=== PATIENT | female | born 1980 | race Caucasian/White ===

== ENCOUNTER 2016-12-30 06:11 | Inpatient (IN) | payer BC ==
[~2016-12-30 06:11] MED LIST: Buffered Lidocaine 0.9% SYRIN* 5 ML/SYR SYRINGE INTRADERM ONE; Sodium Citrate/Citric Acid* 15 ML UDC PO ONE
[2016-12-30] MEDS ORDERED: ceFAZolin 2 GM PREMIX(*) 2 GM/50 ML BAG IVPB ONE (07:19)
[2016-12-30] MEDS ORDERED: Ondansetron INJ* 2 MG/ML VIAL ONE (08:32)
[2016-12-30] MEDS ORDERED: Dexamethasone IV* 4 MG/ML 1 ML (4 MG) ONE (08:32)
[2016-12-30] MEDS ORDERED: OXYTOCIN* 10 UNITS/ML 1 ML VIAL ONE (08:32)
[2016-12-30] MEDS ORDERED: Morphine PF AMP (0.5MG/ML)* 5 MG/10 ML AMP ONE (08:32)
[2016-12-30] MEDS ORDERED: Acetaminophen IV 1GM/100ML * 100 ML IVPB ONE (08:55)
[2016-12-30] MEDS ORDERED: fentaNYL* 50 MCG/ML 2 ML VIAL (100 MCG VIAL) IV PRN (08:55)
[2016-12-30] MEDS ORDERED: oxyCODONE TAB* 5 MG TAB PO PRN ×2 (08:55→09:32)
[2016-12-30] MEDS ORDERED: PROCHLORPERAZINE INJ 5 MG/ML 2 ML VIAL IV PRN (08:55)
[2016-12-30] MEDS ORDERED: Scopolamine 1.5 mg* PATCH TRANSDERM PRN ×2 (08:55→09:32)
[2016-12-30] MEDS ORDERED: Nalbuphine* 20 MG/ML 1 ML VIAL IV PRN ×2 (08:55→09:32)
[2016-12-30] MEDS ORDERED: Ketorolac INJ* 30 MG/ML 1 ML VIAL IV ONE (09:00)
[2016-12-30] MEDS ORDERED: Ondansetron INJ* 2 MG/ML VIAL IV PRN (09:32)
[2016-12-30] MEDS ORDERED: Scopolomine PATCH Remove* 1 NOTE MISC PATCH OFF PRN (09:32)
[2016-12-30] MEDS ORDERED: Naloxone* 0.4 MG/ML 1 ML VIAL IV PRN (09:32)
[2016-12-30] MEDS ORDERED: Witch Hazel PAD* JAR TOPICAL PRN (14:15)
[2016-12-30] MEDS ORDERED: Acetaminophen TAB* 325 MG PO PRN (14:15)
[2016-12-30] MEDS ORDERED: Glycerin ADULT SUPP PR PRN (14:15)
[2016-12-30] MEDS ORDERED: Dibucaine 1% 28.35 GM TUBE PR PRN (14:15)
[2016-12-30] MEDS: Ketorolac INJ* 30 MG/ML 1 ML VIAL IV SCH ×2 (17:09→21:32)
[2016-12-30] MEDS: Simethicone CHEW TAB* 80 MG PO SCH ×2 (17:10→21:33)
[2016-12-30] MEDS ORDERED: Acetaminophen TAB* 325 MG PO SCH (18:00)
[2016-12-30] MEDS: Docusate CAP* 100 MG PO SCH (21:33)
[2016-12-31] MEDS ORDERED: oxyCODONE/Acetamin 5/325 MG* TAB PO PRN ×2 (01:01)
--- NOTE | 2016-12-31 03:18 | PTEDU ---
Patient Name: ARLINE FLORES ARLINE FLORES selected video: Follow Me Mum: The [facility] to Successful to view on 7 at 3:17:40 AM from [id number]
[2016-12-31] MEDS: Ketorolac INJ* 30 MG/ML 1 ML VIAL IV SCH (03:53)
[2016-12-31] MEDS ORDERED: Ibuprofen TAB* 600 MG PO PRN (04:02)
[2016-12-31 06:48] LABS: Hematocrit 30 % (35-47); Mean Corpuscular HGB Conc 33 g/dl (31-36); Mean Corpuscular Hemoglobin 31 pg (27-31); Mean Corpuscular Volume 94 fL (80-97); Mean Platelet Volume 10 um3 (7.4-10.4); Red Blood Count 3.24 10^6/ul (4.0-5.4); Red Cell Distribution Width 15 % (10.5-15); White Blood Count 14.7 10^3/ul (3.5-10.8)
[2016-12-31] MEDS: Simethicone CHEW TAB* 80 MG PO SCH ×4 (08:49→20:26)
[2016-12-31] MEDS: Metoprolol Tartrate TAB* 50 mg PO SCH (08:49)
[2016-12-31] MEDS: Docusate CAP* 100 MG PO SCH ×3 (08:50→20:26)
[2016-12-31] MEDS: Ferrous Gluconate TAB* 324 MG TAB PO SCH (08:50)
[2016-12-31] MEDS ORDERED: Zolpidem TAB* 5 MG PO PRN (21:00)
[2017-01-01] MEDS: Ferrous Gluconate TAB* 324 MG TAB PO SCH ×3 (00:45→21:00)
[2017-01-01] MEDS: Docusate CAP* 100 MG PO SCH ×3 (08:52→21:00)
[2017-01-01] MEDS: Metoprolol Tartrate TAB* 50 mg PO SCH (08:52)
[2017-01-01] MEDS: Simethicone CHEW TAB* 80 MG PO SCH ×4 (08:52→21:00)
[2017-01-02] MEDS ORDERED: Scopolomine PATCH Remove* 1 NOTE MISC PATCH OFF ONE (08:57)
[2017-01-02] MEDS: Docusate CAP* 100 MG PO SCH (10:07)
[2017-01-02] MEDS: Simethicone CHEW TAB* 80 MG PO SCH (10:07)
[2017-01-02 10:34] VITALS: BP 144/84
--- NOTE | 2017-01-04 11:50 | OP ---
DATE OF OPERATION: 12/30/16 - ROOM #[id number]-116 DATE OF : 78 SURGEON: Emmanuelle Cummings MD STRAP STITCHER: Katlin Madrid CNM PRE-OP DIAGNOSES: Intrauterine gestation, 40 weeks gestational age, chronic hypertension, prior section. POST-OP DIAGNOSES: Intrauterine gestation, 40 weeks gestational age, chronic hypertension, prior section. OPERATIVE PROCEDURE: Repeat low transverse section. ESTIMATED BLOOD LOSS: 800 mL. FLUIDS: Crystalloid. COMPLICATIONS: None. FINDINGS: Female , Apgars of 9 and 9. Weight 8 pounds 11 ounces. Normal -appearing placenta. Normal-appearing ovaries, tubes, and uterus. DESCRIPTION OF PROCEDURE: After informed consent was signed, the patient was taken to the operating room where she was given a spinal anesthesia that was found to be adequate. She was prepped and draped in the dorsal supine position with leftward tilt. A Pfannenstiel skin incision was made with a scalpel and carried down to the underlying layer of fascia. The fascia was incised on either side of the midline and the fascial incision extended laterally with sharp dissection. The inferior edge of the fascial incision was grasped with Rajesh clamps, tented up and dissected down with sharp dissection. Then, the superior edge of the fascial incision was grasped with Rajesh clamps, tented up and dissected down with sharp dissection. The rectus muscles were in the midline and the peritoneum was entered with blunt dissection. The incision was extended laterally with careful sharp dissection with Metzenbaum scissors taking care to avoid injury to the bowel and bladder. A bladder blade was inserted. A transverse incision was made in the lower uterine segment with scalpel. The incision was extended superiorly and inferiorly with blunt pressure. The 's head was delivered with fundal pressure followed by the shoulders and the rest of the body. The cord was milked towards the baby and after 30 seconds, clamped x2 and cut. The baby was handed to the nurse and taken directly to mother. Cord blood was collected. The placenta delivered with fundal massage and gentle cord traction. The uterus was then exteriorized. The uterine incision was closed with 0 Vicryl in a running locked fashion with the second layer of suture imbricating the first. The abdomen was irrigated. The uterus was placed back into the abdominal cavity. Good hemostasis was noted along the uterine incision. The peritoneum was closed with 3- 0 chromic in a running unlocked fashion. The fascia was closed with 0 Vicryl in a running unlocked fashion. Two interrupted sutures of 3-0 chromic were placed in the subcuticular layer and reapproximated, and the skin was closed with 4-0 Monocryl in a subcuticular fashion. Incision was cleaned. Mastisol and Steri- Strips were placed. The incision was dressed. The patient was moved to the stretcher and taken to the recovery room in stable condition. [id number]/[facility] #: [id number] SONIDO
== END 2017-01-02 11:25 | disposition home or self-care (01) | DRG 540 ==
LOC: MCHOB 06:11
PROVIDERS: ADMIT Obstetrics & Gynecology; ATTEND Obstetrics & Gynecology
PROC: 10D00Z1 Extraction of Products of Conception, Low, Open Approach (ICD-10-PCS; principal; 2016-12-30 08:45)
DX: O34.211 Maternal care for low transverse scar from previous cesarean delivery (principal); O10.92 Unspecified pre-existing hypertension complicating childbirth; Z3A.40 40 weeks gestation of pregnancy; Z37.0 Single live birth
CPT/HCPCS: 36415; 85025; A9270-GY; J0690; J1100; J1885; J2300; J2405; J2590

== ENCOUNTER 2017-02-05 09:35 | Emergency (ER) | payer BC ==
[2017-02-05 09:42] VITALS: BP 155/93
--- NOTE | 2017-02-05 10:07 | UC ---
General HPI - HPI Summary HPI Summary: TWO DAYS OF CHEST PRESSURE WORSE WITH DEEP BREATH, RADIATES TO LEFT JAW. POST 01/09/17. HISTORY OF PERICARDITIS. NO LEG PAIN OR CALF PAIN. NO URI SYMPTOMS. ON METOPROLOL. - History of Current Complaint Chief Complaint: UCChestPain Stated Complaint: CHEST PRESSURE Time Seen by Provider: 02/05/17 09:46 Hx Obtained From: Patient Onset/Duration: Gradual Onset, Lasting Days, Still Present Onset Severity: Mild Current Severity: Mild Pain Intensity: 3 Associated Signs & Symptoms: Positive: Chest Pain - PRESSURE, SOB. Negative: Abdominal Pain, Cough, Dizziness, Diarrhea, Dysuria, Edema, Fever, Headache, Nausea, Palpitations, Syncope, Trauma, Vomiting, Wheezing, Weakness - Allergy/Home Medications Allergies/Adverse Reactions: Allergies Allergy/AdvReac Type Severity Reaction Status Date / Time Adhesive Tape Allergy Rash Verified 02/05/17 09:42 Penicillin G Allergy Hives Verified 02/05/17 09:42 Home Medications: Home Medications Cephalexin CAP* [Keflex 500 CAP*] 500 mg PO QID 02/05/17 [History Confirmed ] Ibuprofen TAB* [Motrin TAB* 600 MG] 400 mg PO Q6H PRN 02/05/17 [History Confirmed 02/05/17] Metoprolol Succinate [Toprol Xl] 50 mg PO DAILY 02/05/17 [History Confirmed ] Potassium Chlor TAB* [Potassium Chlor TAB 20 MEQ*] 20 meq PO DAILY 02/05/17 [ History Confirmed 02/05/17] PMH/Surg Hx/FS Hx/Imm Hx Previously Healthy: Yes - Surgical History Surgical History: Yes Surgery Procedure, Year, and Place: TONSILS; 12/30/16 - Family History Known Family History: Positive: Hypertension - Social History Lives: With Family Alcohol Use: Rare Substance Use Type: None Smoking Status (MU): Never Smoked Tobacco - Immunization History Most Recent Influenza Vaccination: fall 2013 Most Recent Tetanus Shot: 2013 Most Recent Pneumonia Vaccination: never Review of Systems Constitutional: Negative Skin: Negative Eyes: Negative ENT: Negative Respiratory: Shortness Of Breath, Other - CHEST PRESSURE STERNAL RADIATES TO LEFT JAW, WORSE WITH DEEP INSPIRATION Cardiovascular: Negative Gastrointestinal: Negative Genitourinary: Negative Motor: Negative Neurovascular: Negative Musculoskeletal: Negative Neurological: Negative Psychological: Negative All Other Systems Reviewed And Are Negative: Yes Physical Exam Triage Information Reviewed: Yes Appearance: Well-Appearing, No Pain Distress, Well-Nourished Vital Signs: Initial Vital Signs Temp 98.0 F 02/05/17 09:37 Pulse 72 02/05/17 09:37 Resp 16 02/05/17 09:37 BP 155/93 02/05/17 09:37 Pulse Ox 99 02/05/17 09:37 Vital Signs Reviewed: Yes Eye Exam: Normal ENT Exam: Normal ENT: Positive: Normal ENT inspection, Hearing grossly normal, Pharynx normal, TMs normal Dental Exam: Normal Neck exam: Normal Neck: Positive: Supple, Nontender, No Lymphadenopathy Respiratory Exam: Normal Respiratory: Positive: Chest non-tender, Lungs clear, Normal breath sounds, No respiratory distress, No accessory muscle use Cardiovascular: Positive: RRR, No Murmur, Pulses Normal, Brisk Capillary Refill Abdominal Exam: Normal Musculoskeletal Exam: Normal Musculoskeletal: Positive: Strength Intact, ROM Intact Neurological Exam: Normal Psychological Exam: Normal Skin Exam: Normal Course/Dx - Differential Dx - Multi-Symptom Differential Diagnoses: Cardiac Ischemia, Other - PE Provider Diagnoses: CHEST PRESSURE - Physician Notifications Discussed Patient Care With: Kofi Bella Time Discussed With Above Provider: 09:35 Instructed by Provider To: MD Will See In ED Discharge - Discharge Plan Condition: Guarded Disposition: AGAINST MEDICAL ADVICE Referrals: Rajan White DO [Primary Care Provider] -
== END 2017-02-05 09:59 | disposition left against medical advice (07) ==
LOC: UCEAST 09:35
DX: R07.89 Other chest pain (principal); Z88.0 Allergy status to penicillin; Z88.8 Allergy status to other drugs, medicaments and biological substances
CPT/HCPCS: 93005; 99212; G0463

== ENCOUNTER 2017-02-05 10:09 | Emergency (ER) | payer BC ==
[2017-02-05] MEDS ORDERED: Aspirin Low Dose CHEW TAB* 81 MG PO ONE (10:22)
[2017-02-05 10:51] LABS: Hematocrit 37 % (35-47); Hemoglobin 12.1 g/dl (12.0-16.0); Mean Corpuscular HGB Conc 33 g/dl (31-36); Mean Corpuscular Hemoglobin 29 pg (27-31); Mean Corpuscular Volume 90 fL (80-97); Mean Platelet Volume 9 um3 (7.4-10.4); Red Blood Count 4.12 10^6/ul (4.0-5.4); Red Cell Distribution Width 14 % (10.5-15); White Blood Count 7.7 10^3/ul (3.5-10.8)
--- NOTE | 2017-02-05 11:05 | RAD ---
Indication: Pressure in the chest. Single frontal view of the chest performed at 1050 hours was reviewed. Comparison is made with previous exam dated March 01, 2012. No mediastinal shift is noted. Heart is of normal size and configuration. Lung laguerre appear clear. IMPRESSION: NO ACTIVE CARDIOPULMONARY DISEASE IS NOTED.
[2017-02-05 11:06] LABS: Albumin 3.7 g/dL (3.2-5.2); BUN/Creatinine Ratio 14.5 (8-20); Calcium 8.8 mg/dL (8.6-10.3); EGFR African American 99.5 (>60); EGFR Non-African American 77.4 (>60); Globulin 3.3 g/dL (2-4); Magnesium 2.1 mg/dL (1.9-2.7); Potassium 3.7 mmol/L (3.5-5.0); Total Bilirubin 0.5 mg/dL (0.2-1.0)
[2017-02-05 11:10] LABS: Troponin I 0.01 ng/mL (<0.04)
--- NOTE | 2017-02-05 11:10 | ED ---
HPI Chest Pain - HPI Summary HPI Summary: Patient is 5 weeks post- with a and presents with 2 days of upper mid-sternal chest pain which is intermittent, worse with lying down, better with nothing and described as a pressure. She has had similar symptoms in 2012 and was dx with pericarditis. At that time, she states the pain radiated to the back, and this pain feels different where it is more discretely located, does not radiate and is not sharp. Associated symptoms include tension GASPAR last evening, with alleviation with ibuprofen. She states she has had chest pain in the past, followed up with a customer resolution specialist and EKG and other findings were normal at that time. She has no history of DVT or blood clots. Denies calf pain. She was on bedrest briefly following delivery and denies blood clot prophylaxis. She denies allergies. She takes metoprolol daily for HTN. Family hx of CAD. Grandfather of MA. - History of Current Complaint Chief Complaint: EDChestPainROMI Time Seen by Provider: 02/05/17 10:20 Onset/Duration: Started Days Ago Timing: Constant Initial Severity: Moderate Current Severity: Moderate Pain Intensity: 3 Pain Scale Used: 0-10 Numeric Chest Pain Location: Upper Sternal Chest Pain Radiates: No Character: Dull/Aching Aggravating Factor(s): Position, Recumbent Position Alleviating Factor(s): Upright Position Associated Signs and Symptoms: Positive: Negative Related History: Recent Trauma - Risk Factors Pulmonary Embolism Risk Factors: , Recent Surgery TAD Risk Factors: Negative - Allergy/Home Medications Allergies/Adverse Reactions: Allergies Allergy/AdvReac Type Severity Reaction Status Date / Time Adhesive Tape Allergy Rash Verified 02/05/17 09:42 Penicillin G Allergy Hives Verified 02/05/17 09:42 PMH/Surg Hx/FS Hx/Imm Hx Previously Healthy: Yes Cardiovascular History: Reports: Hx Hypertension Psychiatric History: Reports: Hx Depression - Surgical History Surgery Procedure, Year, and Place: TONSILS; 12/30/16 - Immunization History Hx Pertussis Vaccination: No Immunizations Up to Date: Unable to Obtain/Confirm Infectious Disease History: No Infectious Disease History: Denies: Traveled Outside the [place] in Last 30 Days - Family History Known Family History: Positive: Hypertension - Social History Occupation: Employed Full-time Lives: With Family Alcohol Use: Rare Hx Substance Use: No Substance Use Type: Reports: None Hx Tobacco Use: No Smoking Status (MU): Never Smoked Tobacco Review of Systems Constitutional: Negative Eyes: Negative Positive: Chest Pain Respiratory: Negative Genitourinary: Negative Positive: no symptoms reported, see HPI Musculoskeletal: Negative Skin: Negative Neurological: Other - tension GASPAR last night All Other Systems Reviewed And Are Negative: Yes Physical Exam Triage Information Reviewed: Yes Vital Signs On Initial Exam: Initial Vitals Temp Pulse Resp BP Pulse Ox 97.6 F 66 20 135/89 98 02/05/17 10:11 02/05/17 10:11 02/05/17 10:11 02/05/17 10:11 02/05/17 10:11 Vital Signs Reviewed: Yes Appearance: Positive: Well-Appearing, Well-Nourished Skin: Positive: Warm, Skin Color Reflects Adequate Perfusion Head/Face: Positive: Normal Head/Face Inspection Eyes: Positive: EOMI, NAOMI, Conjunctiva Clear Neck: Positive: Supple, No Lymphadenopathy Respiratory/Lung Sounds: Positive: Clear to Auscultation, Breath Sounds Present Cardiovascular: Positive: Normal, RRR, Pulses are Symmetrical in both Upper and Lower Extremities Musculoskeletal: Positive: Normal, Strength/ROM Intact Neurological: Positive: Sensory/Motor Intact, Alert, Oriented to Person Place, Time Psychiatric: Positive: Normal - Manny Coma Scale Coma Scale Total: 15 Diagnostics - Vital Signs Vital Signs Temp Pulse Resp BP Pulse Ox 02/05/17 10:50 98.4 F 69 14 129/80 96 02/05/17 10:43 96 02/05/17 10:11 97.6 F 66 20 135/89 98 - Laboratory Lab Results: Lab Results 02/05/17 02/05/17 Range/Units 10:35 10:35 WBC 7.7 (3.5-10.8) 10^3/ul RBC 4.12 (4.0-5.4) 10^6/ul Hgb 12.1 (12.0-16.0) g/dl Hct 37 (35-47) % MCV 90 (80-97) fL MCH 29 (27-31) pg MCHC 33 (31-36) g/dl RDW 14 (10.5-15) % Plt Count 236 (150-450) 10^3/ul MPV 9 (7.4-10.4) um3 Neut % (Auto) 74.4 (38-83) % Lymph % (Auto) 16.6 L (25-47) % [place] % (Auto) 5.1 (1-9) % Eos % (Auto) 2.4 (0-6) % Baso % (Auto) 1.5 (0-2) % Absolute Neuts (auto) 5.7 (1.5-7.7) 10^3/ul Absolute Lymphs (auto) 1.3 (1.0-4.8) 10^3/ul Absolute Monos (auto) 0.4 (0-0.8) 10^3/ul Absolute Eos (auto) 0.2 (0-0.6) 10^3/ul Absolute Basos (auto) 0.1 (0-0.2) 10^3/ul Absolute Nucleated RBC 0.01 10^3/ul Nucleated RBC % 0.1 Lactic Acid 0.6 (0.5-2.0) mmol/L Result Diagrams: 02/05/17 10:35 02/05/17 10:35 Lab Statement: Any lab studies that have been ordered have been reviewed, and results considered in the medical decision making process. Chest Pain Course/Dx - Course Course Of Treatment: Chest pain protocol and labs. Chest xray shows no acute changes or active cardiopulmonary disease. Labs WNL. On physical exam, heart sounds normal with no friction rub. Lungs CTA bilaterally. D. IMPRESSION: No evidence of pulmonary embolus is noted. Interstitial edema consistent with. vascular congestion is noted. Bilateral pleural effusions. Patient made aware. Likely consistent with water weight gain from . Spoke with Dr. Dailey at 2pm who agrees this is likely small effusions from and PE ruled out with CTA. Patient OK with discharge and will follow up with her customer resolution specialist Dr. Savage. - Chest Pain Differential Diagnosis/HQI/PQRI: Chest Wall, Pulmonary Edema, Pulmonary Embolism - Diagnoses Provider Diagnoses: Pleural effusion, Chest pain Discharge - Discharge Plan Condition: Stable Disposition: HOME Patient Education Materials: Pleural Effusion (ED) Referrals: Simin Savage MD [Medical Doctor] - Rajan White DO [Primary Care Provider] - Additional Instructions: If you develop any worsening symptoms, return to the ED or follow up with cardiology. I have given you information. Here is information regarding the dye we have discussed: It is not known if iodixanol is present in breast milk. According to the disability attorney, the decision to breastfeed during therapy should take into account the risk of infant exposure, the benefits of to the , and benefits of treatment to the mother. Because of the low expected excretion of iodinated contrast agents into breast milk and the low absorption from an infants GI tract, other sources note may be continued without interruption after use (ACOG 2016; ACR 2015). Theoretically, the taste of milk could be altered if it contains contrast media. Women who prefer to temporarily withhold can pump and store milk prior to the procedure and abstain from for 12 to 24 hours (ACR 2015).
[2017-02-05] MEDS ORDERED: Iohexol 350* (CONTRAST) 500 ML MDV IV ONE (11:35)
[2017-02-05 13:06] VITALS: BP 155/96
--- NOTE | 2017-02-05 13:31 | RAD ---
Indication: Chest pain, elevated d-dimer. Contrast: Administered 80.3 ml of OMNIPAQUE 350 mg/ml CTA of the chest performed after IV contrast administration. Coronal and sagittal reconstructed images were obtained. The pulmonary arterial tree is well opacified. There are no filling defects present to suggest pulmonary embolus. There is no mediastinal or hilar adenopathy noted. The inferior thyroid lobes are unremarkable. The heart demonstrates no pericardial effusion. The trachea and major bronchi appear patent. Mild interstitial prominence consistent with vascular congestion is noted. No alveolar consolidation is noted. IMPRESSION: No evidence of pulmonary embolus is noted. Interstitial edema consistent with vascular congestion is noted. Bilateral pleural effusions.
== END 2017-02-05 14:25 | disposition home or self-care (01) ==
LOC: ED 10:09
DX: J90 Pleural effusion, not elsewhere classified (principal); R07.9 Chest pain, unspecified
CPT/HCPCS: 36415; 71010; 71275; 80053; 82550; 82553; 83605; 83735; 83874; 83880; 84484; 85025; 85379; 85610; 85730; 93005; 99282; A9270-GY; Q9967